=== PATIENT | male | born 2000 | race Caucasian/White ===

== ENCOUNTER 2018-02-18 12:55 | Emergency (ER) | END 2018-02-18 16:36 | disposition home or self-care (01) ==

== ENCOUNTER 2018-02-25 12:02 | Emergency (ER) | payer BC, OTHER ==
[~2018-02-25] VITALS: Ht 175.3 cm; Wt 134.3 kg
[~2018-02-25 12:02] MED LIST: ACET500C5 PO; BACITUD TOP; no meds taken
[2018-02-25 12:05] VITALS: BP 142/75; PULSE 84; RESP 20; Ht 175.3 cm; Wt 134.3 kg
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
[2018-02-25] MEDS ORDERED: DIPHTH/TET/ACEL PERTUSS (ADULT) 0.5 ML VIAL IM* ONE (12:30)
== END 2018-02-25 12:30 | disposition home or self-care (01) ==
LOC: FTE 12:02
DX: Z48.02 Encounter for removal of sutures (principal); Z23 Encounter for immunization
CPT/HCPCS: 90471; 90715; Z7502